=== PATIENT | female | born 1950 | race Caucasian/White ===

== ENCOUNTER → 2018-02-10 | Outpatient (CLI) | payer MEDICARE, BC ==
--- NOTE | 2018-02-13 12:15 | MM ---
Reason for exam: screening (asymptomatic). Last mammogram was performed 3 years and 9 months ago. History: Patient is postmenopausal. Family history of breast cancer in aunt. Taking estrogen. Physical Findings: A clinical breast exam by your physician is recommended on an annual basis and results should be correlated with mammographic findings. MG 3D Screening Mammo W/Cad Bilateral CC and MLO view(s) were taken. Prior study comparison: May 06, 2014, bilateral MG screening mammo w CAD. October 19, 2010, bilateral digital screening mammo w/CAD. No significant changes when compared with prior studies. ASSESSMENT: Benign, BI-RAD 2 RECOMMENDATION: Routine screening mammogram of both breasts in 1 year.
== END | disposition home or self-care (01) ==
LOC: RADMAMWWP 07:24
PROVIDERS: ATTEND Family Medicine
DX: Z12.31 Encounter for screening mammogram for malignant neoplasm of breast (principal)
CPT/HCPCS: 77063; 77067

== ENCOUNTER → 2020-09-24 | Outpatient (CLI) | payer MEDICARE, OTHER ==
--- NOTE | 2020-09-26 11:05 | MM ---
Reason for exam: screening (asymptomatic). Last mammogram was performed 2 years and 7 months ago. History: Patient is postmenopausal. Family history of breast cancer in aunt. Taking estrogen. Physical Findings: A clinical breast exam by your physician is recommended on an annual basis and results should be correlated with mammographic findings. MG 3D Screening Mammo W/Cad Bilateral CC and MLO view(s) were taken. Prior study comparison: February 10, 2018, bilateral MG 3d screening mammo w/cad. May 06, 2014, bilateral MG screening mammo w CAD. There are scattered fibroglandular densities. ASSESSMENT: Negative, BI-RAD 1 RECOMMENDATION: Routine screening mammogram of both breasts in 1 year.
== END | disposition home or self-care (01) ==
LOC: RADMAMWWP 07:36
PROVIDERS: ATTEND Family Medicine
DX: Z12.31 Encounter for screening mammogram for malignant neoplasm of breast (principal); Z78.0 Asymptomatic menopausal state; Z80.3 Family history of malignant neoplasm of breast
CPT/HCPCS: 77063; 77067

== ENCOUNTER → 2022-04-26 | Outpatient (CLI) | payer MEDICARE, OTHER ==
--- NOTE | 2022-04-27 08:54 | MM ---
Reason for Exam: Screening (asymptomatic). Last mammogram was performed 1 year(s) and 7 month(s) ago. Patient History: Menarche at age 15. First Full-Term at age 24. Postmenopausal. Used Estrogen. Maternal aunt had breast cancer, age 45. Risk Values: Sadia 5 year model risk: 1.5%. NCI Lifetime model risk: 4.8%. Prior Study Comparison: 05/06/2014 Bilateral Screening Mammogram, [facility]. 02/10/2018 Bilateral Screening Mammogram, [facility]. 09/24/2020 Bilateral Screening Mammogram, [facility]. Tissue Density: There are scattered fibroglandular densities. Findings: Analyzed By CAD. There is no suspicious group of microcalcifications or new suspicious mass in either breast. Overall Assessment: Negative, BI-RAD 1 Management: Screening Mammogram of both breasts in 1 year. A clinical breast exam by your physician is recommended on an annual basis and results should be correlated with mammographic findings. Electronically signed and approved by: Dung Callaway D.O.
== END | disposition home or self-care (01) ==
LOC: RADMAMWWP 11:03
PROVIDERS: ATTEND Family Medicine
DX: Z12.31 Encounter for screening mammogram for malignant neoplasm of breast (principal); Z78.0 Asymptomatic menopausal state; Z80.3 Family history of malignant neoplasm of breast
CPT/HCPCS: 77063; 77067

== ENCOUNTER → 2022-12-17 | Outpatient (CLI) | payer MEDICARE, OTHER ==
--- NOTE | 2022-12-23 06:58 | MR ---
EXAMINATION TYPE: MR hip LT wo con DATE OF EXAM: 12/17/2022 COMPARISON: No radiographic correlation available. HISTORY: 72 year-old female [id number], unilateral primary osteoarthritis Left hip pain, OA. TECHNIQUE: Multiplanar, multisequence images of the left hip were obtained without IV contrast. FINDINGS: There is mild degenerative change in both hips which could be better assessed radiographically. Small joint effusion slightly greater on the right side. No evidence for hip fracture or AVN. The sacrum and SI joints appear intact. Mild degenerative change left SI joint. No suspicious bone ma rrow replacement. There appears to be site of previous bone grafting measuring 4.4 x 2.7 cm in th trochanter. There is a complete tear of the lateral insertion of the left gluteus medius with prominent fluid adj acent to the left greater trochanter. There is intrasubstance change in partial tear of the posterosu perior insertion of the left gluteus medius. Prominent tendinosis of the gluteus minimus insertion. There is intrasubstance change within the left hamstrings origin. Right hamstrings origin and bilater al rectus femoris origins are intact. Bilateral iliopsoas insertions are intact. Moderate generalized gluteal musculature atrophy, bilaterally. There is some focal edema within the soft tissues interposed between the ischial tuberosity and lesse r trochanter of the left femur. Symmetric course, caliber, and signal intensity of the sciatic nerves. There is sigmoid diverticulosis. Uterus is visualized. No abnormal fluid collection the pelvis. IMPRESSION: 1. Complete tear of the lateral insertion of the left gluteus medius tendon. Small intrasubstance tea r at the posterior-superior insertion of the left gluteus medius tendon. Prominent tendinosis of the left gluteus minimus insertion. Secondary prominent fluid adjacent to the left greater trochanter. 2. Focal soft tissue edema on the left as described above may be seen in the setting of ischiofemoral impingement. Clinically correlate. 3. Some mild intrasubstance change of the left hamstrings origin. 4. There appears to have been previous procedure probably related to curettage and grafting of an are a measuring 4.4 x 2.7 cm within the right greater trochanter. Clinically correlate.
== END | disposition home or self-care (01) ==
LOC: RADMRIMAIN 07:42
PROVIDERS: ATTEND Orthopaedic Surgery
DX: M16.12 Unilateral primary osteoarthritis, left hip (principal); M62.152 Other rupture of muscle (nontraumatic), left thigh

== ENCOUNTER → 2023-05-10 | Outpatient (CLI) | payer MEDICARE, OTHER ==
--- NOTE | 2023-05-10 09:27 | BD ---
EXAMINATION TYPE: Axial Bone Density DATE OF EXAM: 05/10/2023 CLINICAL HISTORY: 72 years old Female. ICD-10 CODE: Z78.0 ASYMPTOMATIC MENOPAUSAL STA Height: 66 Weight: 190.1 FRAX RISK QUESTIONS: Alcohol (3 or more units per day): no Family History (Parent hip fracture): no Glucocorticoids (More than 3mos): no (Ex: prednisone, prednisolone, methylprednisolone, dexamethasone, and hydrocortisone). History of Fracture in Adulthood: no Secondary Osteoporosis: 1. Type 1 Diabetes: no 2. Hyperthyroidism: no 3. Menopause before 45: no 4. Malnutrition: no 5. Chronic liver disease: no Rheumatoid Arthritis: no Current Tobacco Use: no RISK FACTORS HISTORY OF: Surgery to Spine/Hip(right/left)/Wrist (right/left): left When: 2022 2014- bone cyst right hip MEDICATIONS: Thyroid Medications: levothyroxine How Lon EXAM MEASUREMENTS: Bone mineral densitometry was performed using the Hyperpot System. Bone mineral density as measured about the Lumbar spine is: ----- L1-L4(G/cm2): 1.760 T Score Values are as follows: ----- L1: 2.5 ----- L2: 3.9 ----- L3: 6.7 ----- L4: 5.8 ----- L1-L4: 4.8 Z Score Values are as follows: ----- L1: 3.5 ----- L2: 4.8 ----- L3: 7.7 ----- L4: 6.8 ----- L1-L4: 5.8 Bone mineral density has: increased 9.7 % since study of: 2014 Bone mineral density about the R Wrist (g/cm2): 0.545 T Score values are as follows: -----Dist. R+U: -2.3 -----Prox. R+U: -0.9 -----Radius total: -2.1 Z Score values are as follows: -----Dist. R+U: -0.5 -----Prox. R+U: 0.9 -----Radius total: -0.3 Bone mineral density : baseline IMPRESSION: Osteopenia (T Score between -2.5 and -1). There is slightly increased risk of fracture and the patient may be considered for treatment. Re-Screen 2-5 years. NOTE: T-SCORE=SD OF THE YOUNG ADULT MEAN.
--- NOTE | 2023-05-11 08:01 | MM ---
Reason for Exam: Screening (asymptomatic). Last screening mammogram was performed 12 month(s) ago. Patient History: Menarche at age 15. First Full-Term at age 24. Postmenopausal. Maternal aunt had breast cancer, age 45. Risk Values: Sadia 5 year model risk: 1.5%. NCI Lifetime model risk: 4.5%. Prior Study Comparison: 02/10/2018 Bilateral Screening Mammogram, [facility]. 09/24/2020 Bilateral Screening Mammogram, [facility]. 04/26/2022 Bilateral MG 3D screening mammo w/cad, [facility]. Tissue Density: There are scattered fibroglandular densities. Findings: Analyzed By CAD. There is no suspicious group of microcalcifications or new suspicious mass in either breast. Overall Assessment: Benign, BI-RAD 2 Management: Screening Mammogram of both breasts in 1 year. . Patient should continue monthly self-breast exams. A clinical breast exam by your physician is recommended on an annual basis. This exam should not preclude additional follow-up of suspicious palpable abnormalities. Note on Sadia scores and lifetime risk: 1. A Sadia score greater than 3% is considered moderate risk. If this is the case, consider specialist referral to assess eligibility for a risk reducing agent. 2. If overall lifetime risk for the development of breast cancer is 20% or higher, the patient may qualify for future screening with alternating mammogram and breast MRI. Electronically signed and approved by: Daniel Barnett M.D. Radiologis
== END | disposition home or self-care (01) ==
LOC: RADMAMWWP 08:42
PROVIDERS: ATTEND Family Medicine
DX: Z12.31 Encounter for screening mammogram for malignant neoplasm of breast (principal); M85.841 Other specified disorders of bone density and structure, right hand; Z80.3 Family history of malignant neoplasm of breast; Z78.0 Asymptomatic menopausal state
CPT/HCPCS: 77063; 77067; 77080

== ENCOUNTER → 2024-05-14 | Outpatient (CLI) | payer MEDICARE, OTHER ==
--- NOTE | 2024-05-15 06:45 | MM ---
Reason for Exam: Screening (asymptomatic). Last mammogram was performed 1 year(s) and 1 month(s) ago. Patient History: Menarche at age 15. First Full-Term at age 24. Postmenopausal. Maternal aunt had breast cancer, age 45. Risk Values: Sadia 5 year model risk: 1.6%. NCI Lifetime model risk: 4.3%. Prior Study Comparison: 09/24/2020 Bilateral Screening Mammogram, [facility]. 04/26/2022 Bilateral MG 3D screening mammo w/cad, [facility]. 05/10/2023 Bilateral MG 3D screening mammo w/cad, [facility]. Tissue Density: The breasts are almost entirely fatty. Findings: Analyzed By CAD. A loop recorder posterior medial aspect left breast is now present. There is no suspicious group of microcalcifications or new suspicious mass in either breast. Overall Assessment: Benign, BI-RAD 2 Management: Screening Mammogram of both breasts in 1 year. . Patient should continue monthly self-breast exams. A clinical breast exam by your physician is recommended on an annual basis. This exam should not preclude additional follow-up of suspicious palpable abnormalities. Note on Sadia scores and lifetime risk: 1. A Sadia score greater than 3% is considered moderate risk. If this is the case, consider specialist referral to assess eligibility for a risk reducing agent. 2. If overall lifetime risk for the development of breast cancer is 20% or higher, the patient may qualify for future screening with alternating mammogram and breast MRI. [facility], , 05/15/2024 6:42 AM. Electronically signed and approved by: Elfego Daugherty M.D.
== END | disposition home or self-care (01) ==
LOC: RADMAMWWP 16:01
PROVIDERS: ATTEND Family Medicine
DX: Z12.31 Encounter for screening mammogram for malignant neoplasm of breast (principal); R92.313 Mammographic fatty tissue density, bilateral breasts; Z78.0 Asymptomatic menopausal state; Z80.3 Family history of malignant neoplasm of breast
CPT/HCPCS: 77063; 77067